=== PATIENT | female | born 1970 | race Caucasian/White ===

== ENCOUNTER 2016-06-30 12:11 | Emergency (ER) | payer MEDICARE, MEDICAID ==
[2016-06-30 12:26] VITALS: BP 164/88; PULSE 94; TEMP 97.6; BMI 53.3
--- NOTE | 2016-06-30 13:00 | EDPRACDOC ---
- General Information Chief Complaint: Medication Refill Stated Complaint: ANXIETY/CH PAIN/SHOB Time Seen by Provider: 06/30/16 12:52 Information Source: Patient Mode Of Arrival: Car Home Medications: Home Medications Ibuprofen 600 mg PO TID #20 tablet 06/04/16 Allopurinol 100 mg PO DAILY #7 tab 06/30/16 Alprazolam [Xanax] 1 mg PO Q8H PRN #21 tab 06/30/16 Atenolol 25 mg PO DAILY #7 tablet 06/30/16 Gabapentin 600 mg PO BID #14 tab 06/30/16 Metformin HCl 500 mg PO BID #14 tab 06/30/16 Oxycodone HCl/Acetaminophen [Oxycodone-Acetaminophen 10-325] 1 tab PO TID #21 tablet 06/30/16 Potassium Chloride 2 tab PO DAILY #14 capsule.er 06/30/16 Allergies/Adverse Reactions: Allergies Allergy/AdvReac Type Severity Reaction Status Date / Time No Known Allergies Allergy Verified 06/30/16 12:16 - History of Present Illness Duration Without Medication: WED HPI: PT STATES OUT OF SEVERAL OF HER MEDICATIONS, STATES WAS TO SEE HER DOCTOR TODAY AND APPT WAS CANCELED DUE TO DOCTOR BEING OUT OF THE OFFICE. PT STATES OUT OF HER PERCOCET, XANAX, AND GABAPENTIN WELL BP AND CHOLESTEROL MEDS. PT STATES SHE HAS BEEN FEELING "NAUSEATED AND JITTERY" SINCE NOT HAVING PERCOCET AND XANAX SINCE WEDNESDAY. Context: Reports: Ran out of Medication Medication for: Reports: Hypertension, Pain, Psychiatric Pain: Reports: Mild ED Past Medical History - History Reviewed Yes Nurses notes reviewed and agree except as marked - Patient Medical History Cardiac History: Reports: Hypertension GI/ History: Reports: Gastroesophageal Reflux Psychological History: Denies: Depression Systemic History: Reports: Diabetes Additional Past Medical History: GOUT, CHRONIC BACK PAIN Surgical History: Reports: Cholecystectomy - Social Medical History Smoking Status: Heavy tobacco smoker (5 or more cigarettes/day or daily pipe/ cigar) ETOH: None Substance Abuse: None EDM Review of Systems - Review of Systems Constitutional: negative: Chills, Fever Eyes: negative: Blurred Vision, Double Vision Ears: negative: Drainage, Pain Throat: negative: Pain Nose: negative: Congestion, Discharge Respiratory: negative: Cough, Shortness of Breath, Wheezing Cardiovascular: Palpitations. negative: Chest Pain Gastrointestinal: Nausea. negative: Diarrhea, Pain, Vomiting Genitourinary: negative: Dysuria, Frequency Neurological: negative: Dizziness, Headache, Numbness, Weakness Musculoskeletal: No Symptoms Reported Integumentary: No Symptoms Reported - Physical Exam Constitutional: Alert (Awake), No apparent distress Oriented to: Time, Person, Place Last recorded Vital Signs: Last Vital Signs Temp 97.6 F 06/30/16 12:16 Pulse 94 06/30/16 12:16 Resp 20 06/30/16 12:16 BP 164/88 06/30/16 12:16 Pulse Ox 94 06/30/16 12:16 Oxygen Pulse Oxygen Saturation 94 O2 Device Oxygen Flow Rate Fraction of Inspired Oxygen ( FIO2) - HEENT Head: Normal ( normocephalic) Eye Exam: Normal (PERRL, EOMI, Sclera white) Oropharynx: Normal (Pharynx:Moist without exudate,Gums-no swelling) Tympanic Membrane: Normal ENT EAC: Normal TMJ: Normal Nose: No Symptoms Reported (septum midline) Neck: Normal (FROM, trachea at midline) - Respiratory/Cardiovascular Respiratory: Normal - CTA (BBS clear to auscultation without adventitious sounds ) Cardiovascular: Normal (RRR without murmur, gallop or rub) - GI Auscultation: Normal (NABS) Palpation: Normal (Soft,No rebound or guarding, non distended) Tenderness: Non tender Ellison's Sign: Negative - Musculoskeletal Back: Normal (Non-Tender) Extremities: Normal (Normal tone, Pulses 2+ No cyanosis or edema, FROM) - Integumentary Skin: Normal, Warm, Dry Lymphatics: Normal (no adenopathy) - Neurologic Memory Impaired: Normal Motor Function: Normal (Normal tone, Pulses 2+ No cyanosis or edema, FROM) Cranial Nerve: Normal (CN II-X11 intact sensation, strength 5/5) Cerebellar: Normal Mood Description: Normal Perception: Normal - Differential Diagnosis Economic Circumstances, Medication Refill - Additional Information I VERIFIED WITH DR. BURGOS' OFFICE THAT HE IS OUT OF THE OFFICE, NO PROVIDERS IN OFFICE TO SEE PATIENTS UNTIL NEXT WEEK. REVIEWED PT'S CONTROLLED SUBSTANCE HISTORY, PT REGULARLY RECEIVES MEDICATIONS FROM DR BURGOS OFFICE ONLY. EXPLAINED TO PT THAT THE ED WILL NOT BE PRESCRIBING CHRONIC PAIN/ANXIETY MEDICATIONS BEYOND TODAY'S VISIT. Decision Time to Discharge: 13:02 - Departure Disposition: Home Condition: Stable Final Diagnosis: Anxiety Chronic back pain Qualifiers: Back pain location: low back pain Back pain laterality: bilateral Sciatica presence: without sciatica Qualified Code(s): M54.5 - Low back pain; G89.29 - Other chronic pain Instructions: Medication Refill Education/Counseling Given To: Patient Education/Counseling Given Regarding: Diagnosis, Treatment, Prognosis, Follow Up Referrals: Ranjit Burgos MD [Primary Care Provider] - One Week Prescriptions: Allopurinol 100 mg PO DAILY #7 tab Alprazolam [Xanax] 1 mg PO Q8H PRN #21 tab PRN Reason: Anxiety Atenolol 25 mg PO DAILY #7 tablet Gabapentin 600 mg PO BID #14 tab Metformin HCl 500 mg PO BID #14 tab Oxycodone HCl/Acetaminophen [Oxycodone-Acetaminophen 10-325] 1 tab PO TID #21 tablet Potassium Chloride 2 tab PO DAILY #14 capsule.er Forms: Primary / Family Care Contact Additional Instructions: YOU MUST FOLLOW UP WITH YOUR PRIMARY CARE DOCTOR FOR CHRONIC MEDICATION MANAGEMENT, THE ED WILL NOT BE REFILLING PAIN/ANXIETY MEDICATIONS BEYOND TODAY.
== END 2016-06-30 13:15 | disposition home or self-care (01) ==
LOC: EDMC 12:11
DX: F41.9 Anxiety disorder, unspecified (principal); M54.5 Low back pain; G89.29 Other chronic pain
CPT/HCPCS: 99282